=== PATIENT | male | born 1980 | race Caucasian/White ===

== ENCOUNTER 2018-10-30 13:19 | Emergency (ER) | payer MEDICAID ==
[~2018-10-30] VITALS: Ht 165.1 cm; Wt 85.0 kg
[2018-10-30 13:32] VITALS: Ht 165.1 cm; Wt 85.0 kg
[2018-10-30] MEDS ORDERED: AMOX500C2 PO (13:56)
[2018-10-30] MEDS ORDERED: ACET500C5 PO (13:58)
[2018-10-30] MEDS ORDERED: ACETAMINOPHEN 325 MG TAB PO ONE (14:00)
[2018-10-30] MEDS ORDERED: DEXAMETHASONE 4 MG TAB PO ONE (14:00)
--- NOTE | 2018-10-30 14:07 | ERD ---
ER Documentation Chief Complaint Chief Complaint sorethroat x 3wks HPI 38-year-old male presents with sore throat for last few weeks. Has had tactile fevers as well but no measured temperature. Denies cough, vomiting, abdominal pain, rashes, neck stiffness, additional complaints. No sick contacts. ROS All systems reviewed and are negative except as per history of present illness. Medications Home Meds Active Scripts Acetaminophen* (Tylophen*) 500 Mg Capsule, 1 CAP PO Q6H PRN for PAIN AND OR ELEVATED TEMP, #20 CAP Prov:SHRADDHA CHOUDHARY MD 10/30/18 Amoxicillin* (Amoxicillin*) 500 Mg Cap, 500 MG PO TID for 10 Days, CAP Prov:SHRADDHA CHOUDHARY MD 10/30/18 Allergies Allergies: Coded Allergies: No Known Allergy (Unverified , 10/30/18) PMhx/Soc Medical and Surgical Hx: pt denies Medical Hx, pt denies Surgical Hx Hx Alcohol Use: Yes (social) Hx Substance Use: No Hx Tobacco Use: No Smoking Status: Never smoker FmHx Family History: No diabetes, No coronary disease, No other Physical Exam Vitals Vital Signs Date Temp Pulse Resp B/P (MAP) Pulse Ox O2 O2 Flow FiO2 Time Delivery Rate 10/30/18 98.0 73 20 135/83 100 Room Air 14:15 (100) 10/30/18 97.0 66 18 138/89 99 13:32 (105) Physical Exam Const: No acute distress Head: Atraumatic Eyes: Normal Conjunctiva ENT: Normal External Ears, Nose and Mouth. TMs normal. Erythema posterior oropharynx. Uvula midline and airway patent. Tender anterior cervical lymph nodes. No thyroid masses or tenderness. Neck: Full range of motion. No meningismus. Resp: Clear to auscultation bilaterally Cardio: Regular rate and rhythm, no murmurs Abd: Soft, non tender, non distended. Normal bowel sounds Skin: No petechiae or rashes Back: No midline or flank tenderness Ext: No cyanosis, or edema Neur: Awake and alert Psych: Normal Mood and Affect Results 24 hrs Current Medications Medications Dose Sig/Cooper Start Time Status Last (Trade) Ordered Route PRN Stop Time Admin Dose Reason Admin 12 mg ONCE ONCE 10/30/18 DC 10/30/18 Dexamethasone PO 14:00 6/8/19 14:10 (Decadron) 14:01 650 mg ONCE ONCE 10/30/18 DC 10/30/18 Acetaminophen PO 14:00 10/30/18 14:10 (Tylenol 14:01 Tab) Procedures/MDM Patient presents with sore throat for last 3 weeks. He has no signs of abscess, airway obstruction, additional concerning signs or symptoms. May have viral ph aryngitis, but he will be treated given duration and findings on exam with amoxicillin, Tylenol and 1 dose of Decadron for lymphadenitis, primary care follow-up and return precautions. The patient was stable with no new complaints during the ER course. Clinically, there is no current evidence to suggest meningitis, sepsis, acute abdomen, pneumonia, stroke, acute coronary syndrome, pulmonary embolism, aortic dissection or any other emergent condition appearing to require further evaluation or hospitalization. Patient counseled regarding my diagnostic impression and care plan. Prior to discharge all questions answered. Pt agrees with treatment plan and understands strict return precautions. Pt is instructed to follow up with primary care provider within 24- 48 hours. Precautionary instructions provided including instructions to return to the ER if not improving or for any worsening or changing symptoms or concerns. Disclaimer: Inadvertent spelling and grammatical errors are likely due to EHR/dictation software use and do not reflect on the overall quality of patient care. Also, please note that the electronic time recorded on this note does not necessarily reflect the actual time of the patient encounter. Departure Diagnosis: Primary Impression: Sore throat Condition: Stable Patient Instructions: When You Have a Sore Throat, Pharyngitis, Strep (Presumed) Referrals: NO PRIMARY,CARE PHYSICIAN (PCP) Additional Instructions: Recheck for new worsening symptoms with primary care doctor. SHRADDHA CHOUDHARY MD Oct 30, 2018 14:07
[2018-10-30 14:15] VITALS: BP 135/83; PULSE 73; RESP 20
== END 2018-10-30 14:16 | disposition home or self-care (01) ==
LOC: FTE 13:19
DX: J02.9 Acute pharyngitis, unspecified (principal)
CPT/HCPCS: Z7502; Z7610; 99283